=== PATIENT | female | born 1960 | race Caucasian/White ===

== ENCOUNTER → 2016-09-03 | Outpatient (CLI) | payer OTHER, MEDICARE ==
--- NOTE | 2016-09-03 13:33 | RAD ---
CT study of the left elbow without contrast Clinical indications: Injury. Left elbow dislocation and pain. Technique: Noncontrast helical CT scanning of the left elbow was performed. Multiplanar 2-D reconstructions were generated. PQRS Compliance Statement: One or more of the following individualized dose reduction techniques were utilized for this examination: 1. Automated exposure control 2. Adjustment of the mA and/or kV according to patient size 3. Use of iterative reconstruction technique Comparison: None available. Findings: There is anterior lateral dislocation of the humerus with respect to the ulna and radius. There is a cortical avulsion fracture of the anterior aspect of the radial head. These avulsion fracture fragment remains attached to the radial head by the periosteum. There is a fracture of the coronoid process of the ulna. The coronary process fracture fragment is displaced anteriorly and proximally into the distended elbow joint space. This fracture fragment measures 8 mm. A few other tiny fracture fragments are located within the distended elbow joint space. There is a small degenerative spur or joint capsule calcification at the attachment to the lateral aspect of the capitellum. There is no adjacent cortical defect to indicate an avulsion fracture here. No osteolytic process is seen. There a large elbow joint effusion. There is mild fluid distention of the olecranon bursa. IMPRESSION: Posttraumatic fracture dislocation of the left elbow.
== END | disposition home or self-care (01) ==
LOC: CT 11:02
PROVIDERS: ATTEND Orthopaedic Surgery
DX: S42.402A Unspecified fracture of lower end of left humerus, initial encounter for closed fracture (principal); S53.105A Unspecified dislocation of left ulnohumeral joint, initial encounter; X58.XXXA Exposure to other specified factors, initial encounter; Y93.89 Activity, other specified; Y92.89 Other specified places as the place of occurrence of the external cause; Y99.8 Other external cause status
CPT/HCPCS: 73200